=== PATIENT | female | born 1950 | race Caucasian/White ===

== ENCOUNTER 2017-11-30 14:02 | Emergency (ER) | payer MEDICARE, OTHER ==
[2017-11-30 14:11] VITALS: BP 133/77; PULSE 77; RESP 16; TEMP 100.2; O2SAT 93
[2017-11-30] MEDS ORDERED: ESCI10TA PO (14:35)
[2017-11-30] MEDS ORDERED: FLUT50SP EACH NARE (14:35)
[2017-11-30] MEDS ORDERED: ALBUAER3 INH (14:35)
[2017-11-30] MEDS ORDERED: CHOL100025 CHEW (14:35)
[2017-11-30] MEDS ORDERED: DIPH25CA PO (14:35)
[2017-11-30] MEDS ORDERED: MELO7.5T27 PO (14:35)
[2017-11-30] MEDS ORDERED: LISI20TA3 PO (14:35)
[2017-11-30] MEDS ORDERED: MAGN250T11 PO (14:35)
[2017-11-30] MEDS ORDERED: LEVOTAB PO (14:35)
[2017-11-30] MEDS ORDERED: GABA100C4 PO (14:35)
[2017-11-30] MEDS ORDERED: [UNRECOGNIZED DRUG - OTHER] (14:35)
[2017-11-30] MEDS ORDERED: BACL10TA PO (14:35)
[2017-11-30] MEDS ORDERED: ATEN25TA PO (14:35)
[2017-11-30] MEDS ORDERED: ASPI-516 CHEW (14:35)
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
[2017-11-30] MEDS ORDERED: SODIUM CHLOR 0.9% 1000 ML INJ 1,000 ML IV ONE (15:00)
[2017-11-30] MEDS ORDERED: ACETAMINOPHEN 325 MG TAB PO ONE (15:00)
[2017-11-30 15:09] LABS: AUTOMATED NEUTROPHIL # 4.6 TH/MM3 (1.8-7.7); BASOPHIL # 0.2 TH/MM3 (0-0.2); BASOPHIL % 2.5 % (0.0-2.0); EOSINOPHIL % 0.3 % (0.0-4.0); HEMATOCRIT 45.7 % (35.0-46.0); HEMOGLOBIN 15.1 GM/DL (11.6-15.3); LYMPH % 12.4 % (9.0-44.0); LYMPHOCYTE # 0.8 TH/MM3 (1.0-4.8); MEAN CELL VOLUME 85.6 FL (80.0-100.0); MEAN CORPUSCULAR HEMOGLOBIN 28.2 PG (27.0-34.0); MEAN CORPUSCULAR HGB CONC 32.9 % (32.0-36.0); MEAN PLATELET VOLUME 7.2 FL (7.0-11.0); MONOCYTE # 0.8 TH/MM3 (0-0.9); NEUT % 72.8 % (16.0-70.0); PLATELET COUNT 132 TH/MM3 (150-450); RED BLOOD COUNT 5.34 MIL/MM3 (4.00-5.30); RED CELL DISTRIBUTION WIDTH 11.7 % (11.6-17.2); WHITE BLOOD COUNT 6.4 TH/MM3 (4.0-11.0)
[2017-11-30 15:21] LABS: BICARBONATE 29.6 MEQ/L (21.0-32.0); CALCIUM 8.7 MG/DL (8.5-10.1)
[2017-11-30 15:30] VITALS: BP 144/62; PULSE 73; RESP 18; O2SAT 94
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
--- NOTE | 2017-11-30 15:39 | RADRPT ---
EXAM DATE/TIME: 11/30/2017 15:05 [facility] COMPARISON: No previous studies available for comparison. INDICATIONS : Short of breath and passed out today. MEDICAL HISTORY : None. SURGICAL HISTORY : Spinal stimulator ENCOUNTER: Initial ACUITY: 1 day PAIN SCORE: 0/10 LOCATION: Bilateral chest FINDINGS: A single view of the chest demonstrates the lungs to be symmetrically aerated without evidence of mas s, infiltrate or effusion. The cardiomediastinal contours are unremarkable. Osseous structures are intact. CONCLUSION: 1. No acute abnormality identified. Domingo Hoyos MD on November 30, 2017 at 15:36 Board Certified Radiologist. This report was verified electronically.
[2017-11-30] MEDS ORDERED: POTASSIUM CHLORIDE 20 MEQ CONTROLLED RELEASE TAB PO ONE (16:00)
[2017-11-30 16:49] VITALS: BP 139/65
== END 2017-11-30 16:51 | disposition home or self-care (01) ==
LOC: PHED 14:02
DX: E87.6 Hypokalemia (principal); J32.9 Chronic sinusitis, unspecified; M79.1 Myalgia; R53.1 Weakness; I10 Essential (primary) hypertension; Z79.82 Long term (current) use of aspirin; Z79.899 Other long term (current) drug therapy
CPT/HCPCS: 70450; 71045; 80048; 85025; 96360; 99285; J7030